=== PATIENT | female | born 1950 | race Asian ===

== ENCOUNTER 2017-02-26 22:25 | Inpatient (IN) | payer MEDICARE, OTHER ==
[~2017-02-26] VITALS: Ht 157.5 cm; Wt 63.8 kg
[~2017-02-26 22:25] MED LIST: FLUT1BLS PO; FURO20 PO; IPRA4AER IH; LISI-660 PO; NICO14T TD; SPIR25 PO
[2017-02-26] MEDS ORDERED: FURO20TA4 PO (23:12)
[2017-02-26] MEDS ORDERED: ASPI81TA33 PO (23:12)
[2017-02-26] MEDS ORDERED: SPIR25TA PO (23:12)
[2017-02-26] MEDS ORDERED: LISI-622 PO (23:12)
[2017-02-26 23:36] LABS: BASOPHILS # (AUTO) 0.01 K/uL (0.00-0.20); BASOPHILS % (AUTO) 0.1 % (0.0-2.0); EOSINOPHILS # (AUTO) 0.29 K/uL (0.00-0.70); EOSINOPHILS % (AUTO) 3.07 % (1.0-6.0); HEMOGLOBIN 14.9 g/dL (12.0-16.0); LYMPHOCYTES # (AUTO) 0.6 K/uL (1.0-4.8); MEAN CORPUSCULAR HGB CONC 32.5 G/dL (31.0-37.0); MEAN CORPUSCULAR VOLUME 92 fL (80-100); MONOCYTES # (AUTO) 0.4 K/uL (0.1-1.0); NEUTROPHILS # (AUTO) 8.2 K/uL (1.8-7.7); PLATELET COUNT (AUTO) 213 K/uL (150-450); RED BLOOD CELL COUNT(AUTO) 4.98 MIL/uL (4.00-5.20); RED CELL DISTRIBUTION WIDTH 14.6 % (11.5-14.5); WHITE BLOOD COUNT (AUTO) 9.4 K/uL (4.5-11.0)
[2017-02-26 23:37] LABS: NEUTROPHILS % (AUTO) 86.9 % (40.0-70.0)
[2017-02-26 23:57] LABS: CALCIUM, TOTAL 8.8 mg/dL (8.8-10.5); CREATININE 1.48 mg/dL (0.60-1.30); POTASSIUM 4.2 mmol/L (3.5-5.1)
[2017-02-27] VITALS (7 sets, daily range): BP systolic 100–119; BP diastolic 61–70
[2017-02-27 00:05] LABS: ALBUMIN 3.6 g/dL (3.4-5.0); BILIRUBIN,TOTAL 0.4 mg/dL (0.1-1.0); TOTAL PROTEIN, SERUM 8.3 g/dL (6.4-8.2)
[2017-02-27] MEDS ORDERED: MORPHINE SULFATE 4 MG/ML SYRINGE IVP ONE (00:45)
[2017-02-27] MEDS ORDERED: HEPARIN SODIUM 25000 UNITS/D5W 250 ML IV PRN ×2 (01:30→08:00)
[2017-02-27 01:53] LABS: APPEARANCE,URINE CLEAR (CLEAR); GLUCOSE, URINE (UA) NEGATIVE (NEGATIVE); KETONES,URINE NEGATIVE (NEGATIVE); LEUKOCYTE ESTERASE ,URINE NEGATIVE (NEGATIVE); OCCULT BLOOD,URINE SMALL (NEGATIVE); PH,URINE 5.5 (5.0-8.0); PROTEIN,URINE POS 1+ (NEGATIVE)
[2017-02-27 01:56] LABS: PROTHROMBIN TIME 10.7 SEC (9.4-11.6)
[2017-02-27] MEDS ORDERED: HEPARIN SODIUM,PORCINE 5,000 UNITS/ML VIAL IVP PRN ×4 (02:00→08:00)
[2017-02-27] MEDS ORDERED: HEPARIN SODIUM,PORCINE 5,000 UNITS/ML VIAL IVP ONE (02:15)
[2017-02-27 02:30] LABS: SQUAMOUS EPITHELIAL CELL,UR Few /LPF (None Seen); WBC,URINE 0-2 /HPF (0-5)
[2017-02-27] MEDS ORDERED: SODIUM CHLORIDE 0.9% 1,000 ML IV ONE (03:00)
[2017-02-27] MEDS ORDERED: PNEUMOCOCCAL VACCINE POLYVALENT 0.5 ML VIAL [PPSV23] IM ONE (05:00)
[2017-02-27] MEDS ORDERED: INFLUENZA VIRUS VACCINE QVS 2017-18 (3YR+)/PF 60 MCG/0.5 ML SYRINGE IM ONE (05:00)
[2017-02-27] MEDS ORDERED: MAGNESIUM HYDROXIDE SUSPENSION 30 ML UDCUP PO PRN (07:45)
[2017-02-27] MEDS ORDERED: ONDANSETRON HCL 4 MG/2 ML VIAL IVP PRN (07:45)
[2017-02-27] MEDS ORDERED: HEPARIN SODIUM,PORCINE 5,000 UNITS/ML VIAL SQ SCH (08:00)
[2017-02-27] MEDS: FUROSEMIDE 20 MG/2 ML VIAL IVP SCH ×2 (08:33→16:36)
[2017-02-27] MEDS: PANTOPRAZOLE SODIUM 40 MG DR TABLET PO SCH (08:33)
[2017-02-27] MEDS: ASPIRIN 81 MG CHEWABLE TABLET PO SCH (08:33)
[2017-02-27] MEDS: DOCUSATE SODIUM 100 MG CAPSULE PO SCH ×2 (08:33→20:13)
[2017-02-27] MEDS: IPRATROPIUM BROMIDE 0.5 MG/2.5 ML NEB SOLUTION NEB SCH ×4 (11:00→23:01)
[2017-02-27] MEDS: ALBUTEROL SULFATE 2.5 MG/0.5 ML NEB SOLUTION NEB SCH ×4 (11:00→23:01)
[2017-02-27] MEDS ORDERED: IOVERSOL 350 MG/ML 100 ML VIAL ONE (13:17)
[2017-02-27] MEDS ORDERED: SODIUM CHLORIDE 0.9% 100 ML ONE (13:17)
[2017-02-27] MEDS ORDERED: FUROSEMIDE 40 MG/4 ML VIAL IVP ONE (16:15)
[2017-02-27] MEDS ORDERED: *CLINICAL-LEVOFLOXACIN IVPB DOSING CLINICAL ONE ×2 (16:15)
[2017-02-27] MEDS ORDERED: SODIUM CHLORIDE 0.9% 250 ML IV ONE (17:52)
[2017-02-27] MEDS: LEVOFLOXACIN 750 MG/D5% WATER 150 ML IV SCH (18:17)
[2017-02-27] MEDS ORDERED: ALBUTEROL SULFATE 2.5 MG/0.5 ML NEB SOLUTION NEB SCH (19:00)
[2017-02-27] MEDS ORDERED: IPRATROPIUM BROMIDE 0.5 MG/2.5 ML NEB SOLUTION NEB SCH (19:00)
[2017-02-27] MEDS: HEPARIN SODIUM,PORCINE 5,000 UNITS/ML VIAL SQ SCH (20:13)
[2017-02-27] MEDS: ACETAMINOPHEN 325 MG TABLET PO PRN (20:13)
[2017-02-28] MEDS: IPRATROPIUM BROMIDE 0.5 MG/2.5 ML NEB SOLUTION NEB SCH ×6 (03:41→23:50)
[2017-02-28] MEDS: ALBUTEROL SULFATE 2.5 MG/0.5 ML NEB SOLUTION NEB SCH ×6 (03:41→23:50)
[2017-02-28 04:16] VITALS: BP 98/57
[2017-02-28 08:13] VITALS: BP 106/67
[2017-02-28] MEDS: HEPARIN SODIUM,PORCINE 5,000 UNITS/ML VIAL SQ SCH ×2 (09:19→20:03)
[2017-02-28] MEDS: ASPIRIN 81 MG CHEWABLE TABLET PO SCH (09:19)
[2017-02-28] MEDS: PANTOPRAZOLE SODIUM 40 MG DR TABLET PO SCH (09:19)
[2017-02-28] MEDS: DOCUSATE SODIUM 100 MG CAPSULE PO SCH ×2 (09:19→21:37)
[2017-02-28] MEDS: ACETAMINOPHEN 325 MG TABLET PO PRN ×2 (09:22→18:17)
[2017-02-28 11:42] VITALS: BP 101/52
[2017-02-28 15:51] LABS: INFLUENZA TYPE B NEGATIVE FOR TYPE B (NEGATIVE)
[2017-02-28 15:56] VITALS: BP 102/74
[2017-02-28] MEDS: CARVEDILOL 3.125 MG TABLET PO SCH ×2 (16:48→22:07)
[2017-02-28] MEDS: OXYGEN THERAPY IH SCH ×2 (16:48→19:50)
[2017-02-28] MEDS: LISINOPRIL 5 MG TABLET PO SCH (16:48)
[2017-02-28] MEDS ORDERED: INFLUENZA VIRUS VACCINE QVS 2017-18 (3YR+)/PF 60 MCG/0.5 ML SYRINGE IM ONE (17:15)
[2017-02-28 19:57] VITALS: BP 104/58
[2017-02-28 23:49] VITALS: BP 108/66
[2017-03-01] MEDS: ALBUTEROL SULFATE 2.5 MG/0.5 ML NEB SOLUTION NEB SCH ×6 (03:23→22:59)
[2017-03-01] MEDS: IPRATROPIUM BROMIDE 0.5 MG/2.5 ML NEB SOLUTION NEB SCH ×6 (03:23→22:59)
[2017-03-01 04:44] VITALS: BP 108/57
[2017-03-01 07:25] LABS: BASOPHILS # (AUTO) 0.02 K/uL (0.00-0.20); BASOPHILS % (AUTO) 0.4 % (0.0-2.0); EOSINOPHILS # (AUTO) 0.13 K/uL (0.00-0.70); EOSINOPHILS % (AUTO) 2.57 % (1.0-6.0); HEMATOCRIT 39.3 % (36-46); HEMOGLOBIN 12.9 g/dL (12.0-16.0); LYMPHOCYTES # (AUTO) 0.7 K/uL (1.0-4.8); LYMPHOCYTES % (AUTO) 14.1 % (22.0-44.0); MEAN CORPUSCULAR HEMOGLOBIN 30.4 pg (26.0-34.0); MEAN CORPUSCULAR VOLUME 92 fL (80-100); MONOCYTES # (AUTO) 0.5 K/uL (0.1-1.0); NEUTROPHILS # (AUTO) 3.7 K/uL (1.8-7.7); PLATELET COUNT (AUTO) 162 K/uL (150-450); RED BLOOD CELL COUNT(AUTO) 4.26 MIL/uL (4.00-5.20); RED CELL DISTRIBUTION WIDTH 14.1 % (11.5-14.5)
[2017-03-01 07:38] VITALS: BP 111/79
[2017-03-01 07:40] LABS: ALBUMIN 2.9 g/dL (3.4-5.0); BILIRUBIN,TOTAL 0.3 mg/dL (0.1-1.0); CALCIUM, TOTAL 8.7 mg/dL (8.8-10.5); CREATININE 1.2 mg/dL (0.60-1.30); POTASSIUM 4.3 mmol/L (3.5-5.1)
[2017-03-01] MEDS: FUROSEMIDE 20 MG/2 ML VIAL IVP SCH (08:33)
[2017-03-01] MEDS: CARVEDILOL 3.125 MG TABLET PO SCH ×2 (08:33→21:00)
[2017-03-01] MEDS: HEPARIN SODIUM,PORCINE 5,000 UNITS/ML VIAL SQ SCH ×2 (08:33→21:00)
[2017-03-01] MEDS: ACETAMINOPHEN 325 MG TABLET PO PRN ×2 (08:33→22:16)
[2017-03-01] MEDS: ASPIRIN 81 MG CHEWABLE TABLET PO SCH (08:34)
[2017-03-01] MEDS: PANTOPRAZOLE SODIUM 40 MG DR TABLET PO SCH (08:34)
[2017-03-01] MEDS: LISINOPRIL 5 MG TABLET PO SCH (08:34)
[2017-03-01] MEDS: DOCUSATE SODIUM 100 MG CAPSULE PO SCH ×2 (08:34→21:00)
[2017-03-01] MEDS: OXYGEN THERAPY IH SCH ×2 (08:35→20:00)
[2017-03-01 11:31] VITALS: BP 98/51
[2017-03-01 15:39] VITALS: BP 103/56
[2017-03-01] MEDS: LEVOFLOXACIN 750 MG/D5% WATER 150 ML IV SCH (16:05)
[2017-03-01 20:04] VITALS: BP 100/52
[2017-03-01 23:49] VITALS: BP 99/57
[2017-03-02] VITALS (7 sets, daily range): BP systolic 102–129; BP diastolic 50–72
[2017-03-02] MEDS: ALBUTEROL SULFATE 2.5 MG/0.5 ML NEB SOLUTION NEB SCH ×6 (03:00→23:03)
[2017-03-02] MEDS: IPRATROPIUM BROMIDE 0.5 MG/2.5 ML NEB SOLUTION NEB SCH ×6 (03:00→23:03)
[2017-03-02] MEDS: FUROSEMIDE 20 MG/2 ML VIAL IVP SCH (08:29)
[2017-03-02] MEDS: HEPARIN SODIUM,PORCINE 5,000 UNITS/ML VIAL SQ SCH ×2 (08:29→20:17)
[2017-03-02] MEDS: LISINOPRIL 5 MG TABLET PO SCH (08:29)
[2017-03-02] MEDS: DOCUSATE SODIUM 100 MG CAPSULE PO SCH ×2 (08:29→20:17)
[2017-03-02] MEDS: PANTOPRAZOLE SODIUM 40 MG DR TABLET PO SCH (08:29)
[2017-03-02] MEDS: ASPIRIN 81 MG CHEWABLE TABLET PO SCH (08:29)
[2017-03-02] MEDS: CARVEDILOL 3.125 MG TABLET PO SCH ×2 (08:29→20:18)
[2017-03-02] MEDS: OXYGEN THERAPY IH SCH ×2 (08:30→20:16)
[2017-03-03] MEDS: IPRATROPIUM BROMIDE 0.5 MG/2.5 ML NEB SOLUTION NEB SCH ×6 (03:28→22:48)
[2017-03-03] MEDS: ALBUTEROL SULFATE 2.5 MG/0.5 ML NEB SOLUTION NEB SCH ×6 (03:28→22:48)
[2017-03-03 04:30] VITALS: BP 105/72
[2017-03-03 07:19] VITALS: BP 124/65
[2017-03-03] MEDS: ASPIRIN 81 MG CHEWABLE TABLET PO SCH (07:56)
[2017-03-03] MEDS: LISINOPRIL 5 MG TABLET PO SCH (07:56)
[2017-03-03] MEDS: OXYGEN THERAPY IH SCH ×2 (07:56→20:17)
[2017-03-03] MEDS: DOCUSATE SODIUM 100 MG CAPSULE PO SCH ×2 (07:56→20:06)
[2017-03-03] MEDS: PANTOPRAZOLE SODIUM 40 MG DR TABLET PO SCH (07:57)
[2017-03-03] MEDS: HEPARIN SODIUM,PORCINE 5,000 UNITS/ML VIAL SQ SCH ×2 (07:57→20:19)
[2017-03-03] MEDS: CARVEDILOL 3.125 MG TABLET PO SCH ×2 (07:57→20:18)
[2017-03-03] MEDS: FUROSEMIDE 20 MG/2 ML VIAL IVP SCH (07:57)
[2017-03-03 11:30] VITALS: BP 104/66
[2017-03-03 14:13] LABS: ORGANISM ID Not indicated.
[2017-03-03 15:22] VITALS: BP 101/64
[2017-03-03] MEDS: LEVOFLOXACIN 750 MG/D5% WATER 150 ML IV SCH (16:18)
[2017-03-03 19:42] VITALS: BP 103/59
[2017-03-03 22:59] VITALS: BP 101/55
[2017-03-04] MEDS: ALBUTEROL SULFATE 2.5 MG/0.5 ML NEB SOLUTION NEB SCH ×3 (03:34→10:48)
[2017-03-04] MEDS: IPRATROPIUM BROMIDE 0.5 MG/2.5 ML NEB SOLUTION NEB SCH ×3 (03:34→10:48)
[2017-03-04 04:48] VITALS: BP 98/59
[2017-03-04 07:05] VITALS: BP 86/57
[2017-03-04] MEDS: OXYGEN THERAPY IH SCH (07:24)
[2017-03-04] MEDS: CARVEDILOL 3.125 MG TABLET PO SCH (08:40)
[2017-03-04] MEDS: HEPARIN SODIUM,PORCINE 5,000 UNITS/ML VIAL SQ SCH (08:40)
[2017-03-04] MEDS: FUROSEMIDE 20 MG/2 ML VIAL IVP SCH (08:40)
[2017-03-04] MEDS: DOCUSATE SODIUM 100 MG CAPSULE PO SCH (08:40)
[2017-03-04] MEDS: LISINOPRIL 5 MG TABLET PO SCH (08:41)
[2017-03-04] MEDS: PANTOPRAZOLE SODIUM 40 MG DR TABLET PO SCH (08:41)
[2017-03-04] MEDS: ASPIRIN 81 MG CHEWABLE TABLET PO SCH (08:41)
[2017-03-04 11:20] VITALS: BP 118/57
[2017-03-04] MEDS ORDERED: CARV6 PO (12:22)
[2017-03-04] MEDS ORDERED: POTA8CAP10 PO (12:27)
[2017-03-07 16:22] LABS: COCCIDIOIDES BY CF(UCDAVIS) Negative; COCCIDIOIDES IMMUNODIF-UCDAVIS Negative; COCCIDIOIDES INTERP.(UCDAVIS) Comment:
== END 2017-03-04 14:55 | disposition home or self-care (01) | DRG 291 ==
LOC: EMS 22:27 → 5S 02-27 02:36 → 5N 02-27 18:15 → 5S 03-03 02:00
PROVIDERS: ADMIT Internal Medicine; ATTEND Internal Medicine
PROC: 5A09357 Assistance with Respiratory Ventilation, Less than 24 Consecutive Hours, Continuous Positive Airway Pressure (ICD-10-PCS; principal; 2017-02-27)
DX: I11.0 Hypertensive heart disease with heart failure (principal); J96.01 Acute respiratory failure with hypoxia; N17.9 Acute kidney failure, unspecified; J18.9 Pneumonia, unspecified organism; J44.0 Chronic obstructive pulmonary disease with (acute) lower respiratory infection; I50.23 Acute on chronic systolic (congestive) heart failure; I42.9 Cardiomyopathy, unspecified; I50.9 Heart failure, unspecified; J44.9 Chronic obstructive pulmonary disease, unspecified; F41.9 Anxiety disorder, unspecified; F32.9 Major depressive disorder, single episode, unspecified; I34.0 Nonrheumatic mitral (valve) insufficiency; F17.200 Nicotine dependence, unspecified, uncomplicated; F15.10 Other stimulant abuse, uncomplicated; Z91.19 Patient's noncompliance with other medical treatment and regimen; Z78.9 Other specified health status; Z79.82 Long term (current) use of aspirin; Z79.899 Other long term (current) drug therapy; Z87.01 Personal history of pneumonia (recurrent); Z59.0 Homelessness
CPT/HCPCS: 71275; 83036; 84145; 85379; 86480; 87015; 87449; 87804; 87899; 93005; 93306; 94640; 94660; 96365; 96375; 99285; J1644; J1940; J1956; J2270; J7030; J7050

== ENCOUNTER 2019-03-26 11:27 | Inpatient (IN) | payer MEDICARE, OTHER ==
[~2019-03-26] VITALS: Ht 160 cm; Wt 73.0 kg
[~2019-03-26 11:27] MED LIST changes: +ASPI81TA87 PO; +CARV6 PO; -FURO20 PO; +FURO20TA4 PO; -NICO14T TD; +POTA8CAP20 PO; -SPIR25 PO
[2019-03-26] MEDS ORDERED: MethylPREDNISolone SOD SUCC 125 MG/2 ML VIAL IVP ONE (12:15)
[2019-03-26] MEDS ORDERED: AZITHROMYCIN 500 MG/NS 250 ML IV ONE (12:15)
[2019-03-26] MEDS ORDERED: ALBUTEROL SULFATE 2.5 MG/0.5 ML NEB SOLUTION NEB ONE (12:15)
[2019-03-26] MEDS ORDERED: IPRATROPIUM BROMIDE 0.5 MG/2.5 ML NEB SOLUTION NEB ONE (12:15)
[2019-03-26 12:29] LABS: BASOPHILS % (AUTO) 0.3 % (0.0-2.0); EOSINOPHILS % (AUTO) 0.7 % (1.0-6.0); HEMOGLOBIN 18.3 g/dL (12.0-16.0); LYMPHOCYTES # (AUTO) 1.5 K/uL (1.0-4.8); LYMPHOCYTES % (AUTO) 18.7 % (22.0-44.0); MEAN CORPUSCULAR HEMOGLOBIN 31.7 pg (26.0-34.0); MEAN CORPUSCULAR HGB CONC 32.5 G/dL (31.0-37.0); MEAN CORPUSCULAR VOLUME 98 fL (80-100); MONOCYTES # (AUTO) 0.7 K/uL (0.1-1.0); MONOCYTES % (AUTO) 8.4 % (2.0-9.0); NEUTROPHILS # (AUTO) 5.9 K/uL (1.8-7.7); NEUTROPHILS % (AUTO) 71.9 % (40.0-70.0); PLATELET COUNT (AUTO) 157 K/uL (150-450); RED BLOOD CELL COUNT(AUTO) 5.77 MIL/uL (4.00-5.20)
[2019-03-26 12:34] LABS: HEMATOCRIT 56.3 % (36-46)
[2019-03-26 13:20] LABS: INFLUENZA TYPE A NEGATIVE FOR TYPE A (NEGATIVE); INFLUENZA TYPE B NEGATIVE FOR TYPE B (NEGATIVE)
[2019-03-26 13:51] LABS: APPEARANCE,URINE CLOUDY (CLEAR); GLUCOSE, URINE (UA) NEGATIVE (NEGATIVE); KETONES,URINE NEGATIVE (NEGATIVE); NITRATE,URINE NEGATIVE (NEGATIVE); PROTEIN,URINE SEE CONFIRM (NEGATIVE)
[2019-03-26 13:56] LABS: BILIRUBIN,URINE PRELIM. POSITIVE (NEGATIVE)
[2019-03-26 13:57] LABS: BACTERIA,URINE Moderate /HPF (None Seen); LEUKOCYTE ESTERASE ,URINE SMALL (NEGATIVE); OCCULT BLOOD,URINE SMALL (NEGATIVE); SULFOSALICYLIC ACID,URINE 3+ (Negative)
[2019-03-26 13:58] LABS: SQUAMOUS EPITHELIAL CELL,UR Many /LPF (None Seen)
[2019-03-26] MEDS ORDERED: ONDANSETRON HCL 4 MG/2 ML VIAL IVP ONE (14:00)
[2019-03-26 14:10] LABS: AMPHET/METH SCREEN,URINE POSITIVE (NEGATIVE); BARBITURATE SCREEN, URINE NEGATIVE (NEGATIVE); BENZODIAZEPINES SCREEN,URINE NEGATIVE (NEGATIVE); CANNABINOID SCREEN,URINE NEGATIVE (NEGATIVE); COCAINE SCREEN,URINE NEGATIVE (NEGATIVE); METHADONE SCREEN, URINE NEGATIVE (NEGATIVE); OPIATE SCREEN,URINE NEGATIVE (NEGATIVE); PHENCYCLIDINE SCREEN,URINE NEGATIVE (NEGATIVE)
[2019-03-26 14:16] LABS: ANION GAP 10 mmol/L (8-16); CARBON DIOXIDE 24 mmol/L (22-29); CHLORIDE 104 mmol/L (98-107); CREATININE 1.67 mg/dL (0.60-1.30); GLOMERULAR FILTR. RATE CALC 30 mL/min (>60); GLUCOSE,RANDOM 168 mg/dL (70-110); POTASSIUM 4.6 mmol/L (3.5-5.1); SODIUM SERUM 138 mmol/L (136-145); UREA NITROGEN, BLOOD 48 mg/dL (7-18)
[2019-03-26 14:21] LABS: ALANINE AMINOTRANSFERASE 800 U/L (12-78); ALBUMIN 2.5 g/dL (3.4-5.0); ALKALINE PHOSPHATASE 94 U/L (46-116); ASPARTATE AMINOTRANSFERASE 565 U/L (15-37); BILIRUBIN,TOTAL 2.3 mg/dL (0.1-1.0); TOTAL PROTEIN, SERUM 6.3 g/dL (6.4-8.2)
[2019-03-26] MEDS ORDERED: ACETAMINOPHEN 325 MG TABLET PO PRN ×2 (14:30→19:45)
[2019-03-26] MEDS ORDERED: HYDROmorphone 2 MG/ML SYRINGE IVP ONE (14:30)
[2019-03-26] MEDS ORDERED: ONDANSETRON HCL 4 MG/2 ML VIAL IVP PRN ×2 (14:30→19:45)
[2019-03-26] MEDS ORDERED: 0.9% SODIUM CHLORIDE 10 ML SYRINGE IVP PRN (14:30)
[2019-03-26 14:32] LABS: LIPASE 129 U/L (73-393)
[2019-03-26 14:35] LABS: LACTIC ACID 3.2 mmol/L (0.4-2.0)
[2019-03-26] MEDS: ALBUTEROL SULFATE 2.5 MG/0.5 ML NEB SOLUTION NEB SCH ×3 (14:46→20:00)
[2019-03-26] MEDS: IPRATROPIUM BROMIDE 0.5 MG/2.5 ML NEB SOLUTION NEB SCH ×3 (14:46→20:00)
[2019-03-26] MEDS ORDERED: ETOMIDATE 2 MG/ML 10 ML VIAL IVP ONE (15:35)
[2019-03-26] MEDS ORDERED: ROCURONIUM BROMIDE 10 MG/ML 5 ML VIAL IVP ONE (15:35)
[2019-03-26] MEDS ORDERED: PROPOFOL 1000 MG/ISO-OSM 100 ML IV ONE (15:57)
[2019-03-26 16:09] LABS: ABG A-A DIFF O2 530.2 mmHg (10-20.0); ABG BASE EXCESS -21.5 mmol/L (-2.0-3.0); ABG CARBOXYHEMOGLOBIN 0.5 % (0.0-1.5); ABG HCO3 10.2 mmol/L (22.0-26.0); ABG METHEMOGLOBIN 0.5 % (0.0-1.5); ABG OXYGEN CONTENT 23.5 mL/dL (15.0-23.0); ABG OXYGEN SATURATION 97.8 % (95.0-98.0); ABG OXYHEMOGLOBIN 96.8 % (94.0-100.0); ABG PCO2 36 mmHg (35-45); ABG PH 7.033 (7.35-7.450); ABG TOTAL HEMOGLOBIN 17.1 G/dL (12.0-18.0); PO2, ARTERIAL BG 147.1 mmHg (75.0-83.0); SOURCE, BLOOD GAS ARTERIAL; TEMPERATURE, FAHRENHEIT, BG 98.6 FAHREN (96.0-98.6)
[2019-03-26 16:10] LABS: O2 DEVICE,BLOOD GAS VENTILATOR (ROOM AIR); PEEP,BG 5 cm H2O; SITE, BLOOD GAS RT FEMORAL; VT, ABG 450 ml
[2019-03-26] MEDS ORDERED: PHENYLEPHRINE 200 MG/D5%-WATER 250 ML IV PRN (16:15)
[2019-03-26] MEDS ORDERED: DOPamine HCL 400 MG/D5%-WATER 250 ML IV PRN ×2 (16:19→22:45)
[2019-03-26] MEDS ORDERED: NOREPINEPHRINE 4 MG/D5%-WATER 250 ML IV PRN (16:19)
[2019-03-26] MEDS ORDERED: SODIUM BICARBONATE [ADULT] 8.4% 50 MEQ/50 ML SYRINGE IVP ONE ×2 (16:30→18:25)
[2019-03-26] MEDS ORDERED: SODIUM BICARBONATE [ADULT] 8.4% 50 MEQ/50 ML SYRINGE ONE (16:30)
[2019-03-26] MEDS ORDERED: SODIUM CHLORIDE 0.9% 1,000 ML IV ONE (16:30)
[2019-03-26 16:58] LABS: ABG A-A DIFF O2 439.8 mmHg (10-20.0); ABG BASE EXCESS -10.6 mmol/L (-2.0-3.0); ABG HCO3 16.7 mmol/L (22.0-26.0); ABG METHEMOGLOBIN 0.1 % (0.0-1.5); ABG OXYGEN CONTENT 22.3 mL/dL (15.0-23.0); ABG OXYGEN SATURATION 99.3 % (95.0-98.0); ABG OXYHEMOGLOBIN 98.2 % (94.0-100.0); ABG PCO2 41 mmHg (35-45); ABG PH 7.234 (7.35-7.450); ABG TOTAL HEMOGLOBIN 15.8 G/dL (12.0-18.0); PO2, ARTERIAL BG 233.4 mmHg (75.0-83.0); SOURCE, BLOOD GAS ARTERIAL; TEMPERATURE, FAHRENHEIT, BG 97.9 FAHREN (96.0-98.6)
[2019-03-26 17:00] LABS: O2 DEVICE,BLOOD GAS VENTILATOR (ROOM AIR); PEEP,BG 5 cm H2O; SITE, BLOOD GAS RT RADIAL; VT, ABG 450 ml
[2019-03-26 17:10] LABS: GLUCOSE,POINT OF CARE 109 MG/DL (70-110)
[2019-03-26] MEDS ORDERED: SODIUM CHLORIDE 0.9% 250 ML IV STA (17:45)
[2019-03-26 17:51] LABS: PROTHROMBIN TIME 20.1 SEC (9.4-11.6)
[2019-03-26] MEDS ORDERED: 0.9% SODIUM CHLORIDE 1,000 ML BAG IV ONE (18:25)
[2019-03-26] MEDS ORDERED: EPINEPHrine 1:10,000 [1 MG/10 ML] SYRINGE IVP ONE (18:25)
[2019-03-26] MEDS ORDERED: 0.9% SODIUM CHLORIDE 10 ML SYRINGE IVP ONE (18:25)
[2019-03-26] MEDS ORDERED: DOPamine HCL/D5W 400 MG/250 ML IV BAG IV ONE (18:25)
[2019-03-26] MEDS ORDERED: GABA-531 PO (19:28)
[2019-03-26] MEDS ORDERED: METO25 PO (19:28)
[2019-03-26] MEDS ORDERED: *CLINICAL-CEFEPIME DOSING CLINICAL ONE (19:30)
[2019-03-26] MEDS ORDERED: ALBUTEROL SULFATE 2.5 MG/0.5 ML NEB SOLUTION NEB PRN (19:45)
[2019-03-26] MEDS ORDERED: HYDROCODONE/ACETAMINOPHEN 5-325 MG TABLET PO PRN (19:45)
[2019-03-26] MEDS ORDERED: ZOLPIDEM TARTRATE 5 MG TABLET PO PRN (19:45)
[2019-03-26] MEDS ORDERED: IPRATROPIUM BROMIDE 0.5 MG/2.5 ML NEB SOLUTION NEB PRN (19:45)
[2019-03-26] MEDS ORDERED: MORPHINE SULFATE 2 MG/ML SYRINGE IVP PRN (19:45)
[2019-03-26] MEDS ORDERED: BISACODYL 10 MG RECTAL RECTAL SUPPOSITORY PR PRN (19:45)
[2019-03-26] MEDS ORDERED: MAGNESIUM HYDROXIDE SUSPENSION 30 ML UDCUP PO PRN (19:45)
[2019-03-26 20:14] LABS: CALCIUM, TOTAL 6.8 mg/dL (8.8-10.5); CREATININE 1.9 mg/dL (0.60-1.30); POTASSIUM 4.4 mmol/L (3.5-5.1)
[2019-03-26] MEDS ORDERED: VANCOMYCIN HCL 1.25 GM in DEXTROSE 5%-WATER 250 ML IV ONE (21:00)
[2019-03-26] MEDS ORDERED: FUROSEMIDE 20 MG/2 ML VIAL IVP SCH (21:00)
[2019-03-26] MEDS ORDERED: CEFEPIME HCL 1 GM in DEXTROSE 5%-WATER 50 ML IV ONE (21:00)
[2019-03-26 21:35] LABS: LACTIC ACID 5.3 mmol/L (0.4-2.0)
[2019-03-26] MEDS: BENZONATATE 100 MG CAPSULE PO SCH (23:00)
[2019-03-26] MEDS: CARVEDILOL 6.25 MG TABLET PO SCH (23:00)
[2019-03-26] MEDS: GuaiFENesin SR 600 MG ER TABLET PO SCH (23:00)
[2019-03-26] MEDS: DOCUSATE SODIUM 100 MG CAPSULE PO SCH (23:00)
[2019-03-26 23:04] LABS: BASOPHILS % (AUTO) 0.2 % (0.0-2.0); EOSINOPHILS % (AUTO) 0.1 % (1.0-6.0); HEMATOCRIT 54.7 % (36-46); HEMOGLOBIN 17.5 g/dL (12.0-16.0); LYMPHOCYTES # (AUTO) 0.7 K/uL (1.0-4.8); LYMPHOCYTES % (AUTO) 5.5 % (22.0-44.0); MEAN CORPUSCULAR HEMOGLOBIN 31.5 pg (26.0-34.0); MEAN CORPUSCULAR HGB CONC 31.9 G/dL (31.0-37.0); MEAN CORPUSCULAR VOLUME 99 fL (80-100); MONOCYTES # (AUTO) 1.2 K/uL (0.1-1.0); MONOCYTES % (AUTO) 9.3 % (2.0-9.0); NEUTROPHILS # (AUTO) 11.4 K/uL (1.8-7.7); NEUTROPHILS % (AUTO) 84.9 % (40.0-70.0); RED BLOOD CELL COUNT(AUTO) 5.55 MIL/uL (4.00-5.20); RED CELL DISTRIBUTION WIDTH 16.1 % (11.5-14.5)
[2019-03-26] MEDS ORDERED: SODIUM CHLORIDE 0.9% 250 ML IV ONE (23:16)
[2019-03-26 23:28] LABS: ABG A-A DIFF O2 161.4 mmHg (10-20.0); ABG BASE EXCESS -11.4 mmol/L (-2.0-3.0); ABG CARBOXYHEMOGLOBIN 0.4 % (0.0-1.5); ABG HCO3 16.8 mmol/L (22.0-26.0); ABG METHEMOGLOBIN 0.3 % (0.0-1.5); ABG OXYGEN CONTENT 25.3 mL/dL (15.0-23.0); ABG OXYGEN SATURATION 97.2 % (95.0-98.0); ABG OXYHEMOGLOBIN 96.5 % (94.0-100.0); ABG PCO2 30 mmHg (35-45); ABG TOTAL HEMOGLOBIN 18.6 G/dL (12.0-18.0); PO2, ARTERIAL BG 91.1 mmHg (75.0-83.0); SITE, BLOOD GAS RT FEMORAL; SOURCE, BLOOD GAS ARTERIAL; TEMPERATURE, FAHRENHEIT, BG 94.5 FAHREN (96.0-98.6)
[2019-03-26 23:29] LABS: O2 DEVICE,BLOOD GAS VENTILATOR (ROOM AIR); PEEP,BG 5 cm H2O; VT, ABG 450 ml
[2019-03-26 23:31] LABS: PLATELET COUNT (AUTO) 141 K/uL (150-450)
[2019-03-26 23:32] LABS: PLATELET MORPHOLOGY COMMENT LARGE PLTS PRESENT
[2019-03-27] VITALS: BP 130/73
[2019-03-27] MEDS: MethylPREDNISolone SOD SUCC 125 MG/2 ML VIAL IVP SCH ×4 (00:31→17:58)
[2019-03-27] MEDS: PHENYLEPHRINE 200 MG/D5%-WATER 250 ML IV PRN ×2 (01:18→15:40)
[2019-03-27] MEDS: NOREPINEPHRINE 4 MG/D5%-WATER 250 ML IV PRN ×6 (01:21→22:25)
[2019-03-27] MEDS: IPRATROPIUM BROMIDE 0.5 MG/2.5 ML NEB SOLUTION NEB SCH ×4 (01:40→19:18)
[2019-03-27] MEDS: ALBUTEROL SULFATE 2.5 MG/0.5 ML NEB SOLUTION NEB SCH ×4 (01:41→19:18)
[2019-03-27 01:48] LABS: ALBUMIN 2.5 g/dL (3.4-5.0); BILIRUBIN,TOTAL 3.6 mg/dL (0.1-1.0); CALCIUM, TOTAL 7.4 mg/dL (8.8-10.5); CREATININE 2.25 mg/dL (0.60-1.30); MAGNESIUM 1.9 mg/dL (1.80-2.40); PHOSPHORUS 7.2 mg/dL (2.5-4.9); POTASSIUM 5.6 mmol/L (3.5-5.1)
[2019-03-27 04:00] VITALS: BP 61/300
[2019-03-27] MEDS: PROPOFOL 1000 MG/ISO-OSM 100 ML IV PRN ×2 (05:15→14:18)
[2019-03-27 06:03] LABS: GLUCOSE,POINT OF CARE 165 MG/DL (70-110)
[2019-03-27] MEDS ORDERED: VANCOMYCIN HCL 750 MG in DEXTROSE 5%-WATER 250 ML IV SCH (07:00)
[2019-03-27 07:03] LABS: GLUCOSE,POINT OF CARE 197 MG/DL (70-110)
[2019-03-27] MEDS ORDERED: VASOPRESSIN 40 UNITS in DEXTROSE 5%-WATER 98 ML IV PRN ×2 (07:33→07:45)
[2019-03-27 07:54] LABS: ABG BASE EXCESS -12.2 mmol/L (-2.0-3.0); ABG CARBOXYHEMOGLOBIN 1.1 % (0.0-1.5); ABG HCO3 15.2 mmol/L (22.0-26.0); ABG METHEMOGLOBIN 0.1 % (0.0-1.5); ABG OXYGEN CONTENT 22.5 mL/dL (15.0-23.0); ABG OXYGEN SATURATION 99.4 % (95.0-98.0); ABG OXYHEMOGLOBIN 98.2 % (94.0-100.0); ABG PCO2 48 mmHg (35-45); ABG TOTAL HEMOGLOBIN 15.9 G/dL (12.0-18.0); PO2, ARTERIAL BG 240.2 mmHg (75.0-83.0); SOURCE, BLOOD GAS ARTERIAL; TEMPERATURE, FAHRENHEIT, BG 98.6 FAHREN (96.0-98.6)
[2019-03-27 07:56] LABS: ABG PH 7.156 (7.35-7.450); SITE, BLOOD GAS RT BRACHIAL
[2019-03-27 07:57] LABS: O2 DEVICE,BLOOD GAS VENTILATOR (ROOM AIR); PEEP,BG 5 cm H2O; VT, ABG 450 ml
[2019-03-27 08:00] VITALS: BP 38/25
[2019-03-27] MEDS: HEPARIN SODIUM,PORCINE 5,000 UNITS/ML VIAL SQ SCH ×3 (08:00→16:00)
[2019-03-27 08:06] LABS: HEMOGLOBIN 15.4 g/dL (12.0-16.0); MEAN CORPUSCULAR HEMOGLOBIN 31.8 pg (26.0-34.0); MEAN CORPUSCULAR HGB CONC 32.2 G/dL (31.0-37.0); MEAN CORPUSCULAR VOLUME 99 fL (80-100); PLATELET COUNT (AUTO) 85 K/uL (150-450); RED BLOOD CELL COUNT(AUTO) 4.85 MIL/uL (4.00-5.20); RED CELL DISTRIBUTION WIDTH 15.7 % (11.5-14.5)
[2019-03-27] MEDS ORDERED: EPINEPHrine 2 MG in DEXTROSE 5%-WATER 248 ML IV PRN (08:15)
[2019-03-27] MEDS ORDERED: SODIUM BICARBONATE [ADULT] 8.4% 50 MEQ/50 ML SYRINGE IVP ONE ×2 (08:15→08:16)
[2019-03-27 08:21] LABS: BILIRUBIN,TOTAL 4.5 mg/dL (0.1-1.0); CALCIUM, TOTAL 6.4 mg/dL (8.8-10.5); CREATININE 2.77 mg/dL (0.60-1.30); MAGNESIUM 1.8 mg/dL (1.80-2.40); PHOSPHORUS 7.9 mg/dL (2.5-4.9); POTASSIUM 4.2 mmol/L (3.5-5.1); TOTAL PROTEIN, SERUM 5.1 g/dL (6.4-8.2)
[2019-03-27] MEDS: DOCUSATE SODIUM 100 MG CAPSULE PO SCH ×2 (09:00→21:00)
[2019-03-27] MEDS: ASPIRIN 81 MG EC TABLET PO SCH (09:00)
[2019-03-27] MEDS: FLUTICASONE/VILANTEROL 200-25 MCG/INH INHALER [14] IH SCH (09:00)
[2019-03-27] MEDS ORDERED: PANTOPRAZOLE SODIUM 40 MG DR TABLET PO SCH (09:00)
[2019-03-27] MEDS ORDERED: PHYTONADIONE 10 MG/1 ML AMP IM ONE (09:15)
[2019-03-27] MEDS ORDERED: VANCOMYCIN HCL 1 GM/D5% WATER 200 ML IV PRN (09:30)
[2019-03-27] MEDS ORDERED: SODIUM CHLORIDE 0.9% 250 ML IV ONE ×2 (09:37→23:09)
[2019-03-27] MEDS: GuaiFENesin SR 600 MG ER TABLET PO SCH ×2 (09:39→21:00)
[2019-03-27] MEDS: BENZONATATE 100 MG CAPSULE PO SCH ×3 (09:40→21:00)
[2019-03-27] MEDS: CARVEDILOL 6.25 MG TABLET PO SCH ×2 (09:40→21:00)
[2019-03-27 09:42] LABS: BAND NEUTROPHILS % (MANUAL) 10 % (0-5); LYMPHOCYTES % (MANUAL) 15 % (22-44); MONOCYTES % (MANUAL) 8 % (2-9); REACTIVE LYMPHOCYTES 3 % (0-0); SEGMENTED NEUTROPHILS % 64 % (40-70)
[2019-03-27] MEDS ORDERED: HEPARIN SODIUM,PORCINE 100 UNITS/ML 5 ML VIAL IVP ONE ×2 (11:00)
[2019-03-27] MEDS ORDERED: HEPARIN SODIUM,PORCINE 1,000 UNITS/ML VIAL ONE (11:02)
[2019-03-27] MEDS: PANTOPRAZOLE SODIUM 80 MG in SODIUM CHLORIDE 0.9% 100 ML IV SCH ×2 (11:03→20:06)
[2019-03-27] MEDS ORDERED: HEPARIN SODIUM,PORCINE 1,000 UNITS/ML VIAL IVP ONE ×2 (11:15)
[2019-03-27 12:00] VITALS: BP 130/39
[2019-03-27] MEDS: OCTREOTIDE ACETATE 500 MCG in DEXTROSE 5%-WATER 97.5 ML IV SCH ×2 (12:18→17:56)
[2019-03-27 13:30] LABS: ABG A-A DIFF O2 471.7 mmHg (10-20.0); ABG BASE EXCESS -5.1 mmol/L (-2.0-3.0); ABG CARBOXYHEMOGLOBIN 1.7 % (0.0-1.5); ABG HCO3 20.7 mmol/L (22.0-26.0); ABG METHEMOGLOBIN 0.3 % (0.0-1.5); ABG OXYGEN CONTENT 19.1 mL/dL (15.0-23.0); ABG OXYGEN SATURATION 90.1 % (95.0-98.0); ABG OXYHEMOGLOBIN 88.3 % (94.0-100.0); ABG PCO2 36 mmHg (35-45); ABG PH 7.365 (7.35-7.450); ABG TOTAL HEMOGLOBIN 15.4 G/dL (12.0-18.0); PO2, ARTERIAL BG 60.7 mmHg (75.0-83.0); SITE, BLOOD GAS ARTERIAL LINE; SOURCE, BLOOD GAS ARTERIAL; TEMPERATURE, FAHRENHEIT, BG 98.6 FAHREN (96.0-98.6)
[2019-03-27 13:31] LABS: O2 DEVICE,BLOOD GAS VENTILATOR (ROOM AIR); PEEP,BG 5 cm H2O; VT, ABG 450 ml
[2019-03-27 13:32] LABS: ALBUMIN 1.8 g/dL (3.4-5.0); BILIRUBIN,TOTAL 7.5 mg/dL (0.1-1.0); CALCIUM, TOTAL 6.3 mg/dL (8.8-10.5); CREATININE 2.69 mg/dL (0.60-1.30); MAGNESIUM 1.6 mg/dL (1.80-2.40); PHOSPHORUS 5.5 mg/dL (2.5-4.9); POTASSIUM 3.7 mmol/L (3.5-5.1); TOTAL PROTEIN, SERUM 4.7 g/dL (6.4-8.2)
[2019-03-27 13:51] LABS: GLUCOSE,POINT OF CARE 123 MG/DL (70-110)
[2019-03-27] MEDS ORDERED: CALCIUM GLUCONATE 2,000 MG in DEXTROSE 5%-WATER 50 ML IV ONE (14:00)
[2019-03-27] MEDS ORDERED: MAGNESIUM SULFATE 1 GM in DEXTROSE 5%-WATER 50 ML IV ONE (14:00)
[2019-03-27] MEDS: CEFEPIME HCL 2 GM in DEXTROSE 5%-WATER 50 ML IV SCH (14:04)
[2019-03-27 17:40] LABS: HEMATOCRIT 40.3 % (36-46); HEMOGLOBIN 12.9 g/dL (12.0-16.0)
[2019-03-27 18:00] VITALS: BP 135/47
[2019-03-27 18:12] LABS: CALCIUM, TOTAL 6.9 mg/dL (8.8-10.5); CREATININE 2.78 mg/dL (0.60-1.30); MAGNESIUM 1.8 mg/dL (1.80-2.40); PHOSPHORUS 5.5 mg/dL (2.5-4.9); POTASSIUM 4.1 mmol/L (3.5-5.1)
[2019-03-27] MEDS ORDERED: CALCIUM CHLORIDE IV SCH (19:15)
[2019-03-27] MEDS ORDERED: CALCIUM CHLORIDE IV ONE (19:15)
[2019-03-27] MEDS ORDERED: SODIUM CHLORIDE 0.9% IV ONE (19:15)
[2019-03-27] MEDS ORDERED: SODIUM CHLORIDE 0.9% IV SCH (19:15)
[2019-03-27 20:00] VITALS: BP 104/44
[2019-03-27] MEDS: MetroNIDAZOLE 500 MG/NACL 100 ML IV SCH (20:05)
[2019-03-27 21:58] LABS: ALBUMIN 2.1 g/dL (3.4-5.0); BILIRUBIN,TOTAL 12.4 mg/dL (0.1-1.0); CALCIUM, TOTAL 7.3 mg/dL (8.8-10.5); CREATININE 2.95 mg/dL (0.60-1.30); MAGNESIUM 1.9 mg/dL (1.80-2.40); PHOSPHORUS 5.1 mg/dL (2.5-4.9); POTASSIUM 3.9 mmol/L (3.5-5.1); TOTAL PROTEIN, SERUM 4.8 g/dL (6.4-8.2)
[2019-03-27] MEDS ORDERED: SODIUM CHLORIDE 0.9% 500 ML IV ONE (23:09)
[2019-03-28] VITALS (11 sets, daily range): BP systolic 84–178; BP diastolic 38–71
[2019-03-28] MEDS: HEPARIN SODIUM,PORCINE 5,000 UNITS/ML VIAL SQ SCH
[2019-03-28] MEDS: MethylPREDNISolone SOD SUCC 125 MG/2 ML VIAL IVP SCH ×4 (00:55→18:04)
[2019-03-28] MEDS: PROPOFOL 1000 MG/ISO-OSM 100 ML IV PRN ×3 (00:56→18:55)
[2019-03-28 01:26] LABS: GLUCOSE,POINT OF CARE 134 MG/DL (70-110)
[2019-03-28] MEDS: NOREPINEPHRINE 4 MG/D5%-WATER 250 ML IV PRN (01:38)
[2019-03-28] MEDS: ALBUTEROL SULFATE 2.5 MG/0.5 ML NEB SOLUTION NEB SCH ×4 (02:36→19:21)
[2019-03-28] MEDS: IPRATROPIUM BROMIDE 0.5 MG/2.5 ML NEB SOLUTION NEB SCH ×4 (02:37→19:21)
[2019-03-28] MEDS ORDERED: CALCIUM CHLORIDE 100 MG/ML 10 ML VIAL IVP SCH (03:00)
[2019-03-28 03:12] LABS: BILIRUBIN,TOTAL 18.4 mg/dL (0.1-1.0); CALCIUM, TOTAL 8.2 mg/dL (8.8-10.5); CREATININE 3.24 mg/dL (0.60-1.30); MAGNESIUM 1.7 mg/dL (1.80-2.40); PHOSPHORUS 6.1 mg/dL (2.5-4.9); POTASSIUM 4.1 mmol/L (3.5-5.1); TOTAL PROTEIN, SERUM 4.7 g/dL (6.4-8.2)
[2019-03-28] MEDS: MetroNIDAZOLE 500 MG/NACL 100 ML IV SCH ×3 (03:17→20:56)
[2019-03-28] MEDS: CALCIUM CHLORIDE IV SCH ×3 (03:30→21:15)
[2019-03-28] MEDS: WATER IV SCH ×3 (03:30→21:15)
[2019-03-28] MEDS: DEXTROSE 5% IV SCH ×3 (03:30→21:15)
[2019-03-28] MEDS: OCTREOTIDE ACETATE 500 MCG in DEXTROSE 5%-WATER 97.5 ML IV SCH ×2 (05:45→15:17)
[2019-03-28] MEDS: NOREPINEPHRINE BITARTRATE 16 MG in DEXTROSE 5%-WATER 234 ML IV PRN ×2 (05:50→20:55)
[2019-03-28] MEDS: PANTOPRAZOLE SODIUM 80 MG in SODIUM CHLORIDE 0.9% 100 ML IV SCH ×3 (06:03→15:18)
[2019-03-28 07:40] LABS: ALBUMIN 1.8 g/dL (3.4-5.0); BILIRUBIN,TOTAL 20.1 mg/dL (0.1-1.0); CALCIUM, TOTAL 8.5 mg/dL (8.8-10.5); CREATININE 3.46 mg/dL (0.60-1.30); POTASSIUM 4.6 mmol/L (3.5-5.1); TOTAL PROTEIN, SERUM 4.4 g/dL (6.4-8.2)
[2019-03-28 08:00] LABS: HEMATOCRIT 40.6 % (36-46); HEMOGLOBIN 13.3 g/dL (12.0-16.0); MEAN CORPUSCULAR HEMOGLOBIN 32.6 pg (26.0-34.0); MEAN CORPUSCULAR HGB CONC 32.7 G/dL (31.0-37.0); MEAN CORPUSCULAR VOLUME 100 fL (80-100); PLATELET COUNT (AUTO) 57 K/uL (150-450); RED BLOOD CELL COUNT(AUTO) 4.08 MIL/uL (4.00-5.20); RED CELL DISTRIBUTION WIDTH 15.7 % (11.5-14.5)
[2019-03-28 08:41] LABS: BAND NEUTROPHILS % (MANUAL) 20 % (0-5); CORRECTED WHITE BLOOD COUNT 6.4 K/uL (4.5-11.0); LYMPHOCYTES % (MANUAL) 2 % (22-44); MONOCYTES % (MANUAL) 12 % (2-9); MYELOCYTES % 2 % (0-0); REACTIVE LYMPHOCYTES 1 % (0-0); SEGMENTED NEUTROPHILS % 63 % (40-70)
[2019-03-28 08:54] LABS: ABG A-A DIFF O2 194.5 mmHg (10-20.0); ABG BASE EXCESS -5.1 mmol/L (-2.0-3.0); ABG CARBOXYHEMOGLOBIN 3.5 % (0.0-1.5); ABG HCO3 20.9 mmol/L (22.0-26.0); ABG METHEMOGLOBIN 0.3 % (0.0-1.5); ABG OXYGEN CONTENT 17.8 mL/dL (15.0-23.0); ABG OXYGEN SATURATION 96.5 % (95.0-98.0); ABG OXYHEMOGLOBIN 92.8 % (94.0-100.0); ABG PCO2 34 mmHg (35-45); ABG PH 7.385 (7.35-7.450); ABG TOTAL HEMOGLOBIN 13.6 G/dL (12.0-18.0); O2 DEVICE,BLOOD GAS VENTILATOR (ROOM AIR); PO2, ARTERIAL BG 87.6 mmHg (75.0-83.0); SITE, BLOOD GAS ARTERIAL LINE; SOURCE, BLOOD GAS ARTERIAL; TEMPERATURE, FAHRENHEIT, BG 98.6 FAHREN (96.0-98.6)
[2019-03-28 08:55] LABS: PEEP,BG 5 cm H2O; VT, ABG 450 ml
[2019-03-28] MEDS: GuaiFENesin SR 600 MG ER TABLET PO SCH ×2 (09:00→20:56)
[2019-03-28] MEDS: FLUTICASONE/VILANTEROL 200-25 MCG/INH INHALER [14] IH SCH (09:00)
[2019-03-28] MEDS: CARVEDILOL 6.25 MG TABLET PO SCH ×2 (09:00→20:56)
[2019-03-28] MEDS: BENZONATATE 100 MG CAPSULE PO SCH ×3 (09:00→20:57)
[2019-03-28] MEDS: DOCUSATE SODIUM 100 MG CAPSULE PO SCH ×2 (09:00→20:56)
[2019-03-28] MEDS: ASPIRIN 81 MG EC TABLET PO SCH (09:00)
[2019-03-28 09:05] LABS: INR 1.7 (0.9-1.1)
[2019-03-28 09:18] LABS: LACTIC ACID 5.8 mmol/L (0.4-2.0)
[2019-03-28 09:24] LABS: PHOSPHORUS 7.1 mg/dL (2.5-4.9)
[2019-03-28] MEDS ORDERED: POTASSIUM CHLORIDE 20 MEQ in NXSTAGE RFP-402 K0/CA3 5,000 ML IRRIG PRN (09:30)
[2019-03-28] MEDS ORDERED: INFLUENZA VIRUS VACCINE QVS 2019-20 (3YR+)/PF 60 MCG/0.5 ML SYRINGE IM ONE (09:45)
[2019-03-28] MEDS ORDERED: ROCURONIUM BROMIDE 10 MG/ML 5 ML VIAL IVP ONE (09:52)
[2019-03-28] MEDS ORDERED: ETOMIDATE 2 MG/ML 10 ML VIAL IVP ONE (09:52)
[2019-03-28] MEDS ORDERED: PHENYLEPHRINE HCL 800 MG in DEXTROSE 5%-WATER 170 ML IV PRN (10:30)
[2019-03-28] MEDS: CEFEPIME HCL 2 GM in DEXTROSE 5%-WATER 50 ML IV SCH (13:25)
[2019-03-28 13:47] LABS: CALCIUM, TOTAL 8.8 mg/dL (8.8-10.5); CREATININE 3.12 mg/dL (0.60-1.30); POTASSIUM 4.7 mmol/L (3.5-5.1)
[2019-03-28] MEDS ORDERED: VANCOMYCIN HCL 500 MG in DEXTROSE 5%-WATER 100 ML IV ONE (14:00)
[2019-03-28] MEDS ORDERED: SODIUM CHLORIDE 0.9% 250 ML IV ONE (15:53)
[2019-03-28 19:42] LABS: ALBUMIN 1.9 g/dL (3.4-5.0); CALCIUM, TOTAL 9.2 mg/dL (8.8-10.5); CREATININE 2.59 mg/dL (0.60-1.30); POTASSIUM 4.8 mmol/L (3.5-5.1); TOTAL PROTEIN, SERUM 4.6 g/dL (6.4-8.2)
[2019-03-28 19:46] LABS: BILIRUBIN,TOTAL 25.1 mg/dL (0.1-1.0)
[2019-03-28] MEDS ORDERED: CEFEPIME HCL 1 GM in DEXTROSE 5%-WATER 50 ML IV SCH (21:00)
[2019-03-29] VITALS (8 sets, daily range): BP systolic 94–144; BP diastolic 21–70
[2019-03-29] MEDS: MethylPREDNISolone SOD SUCC 125 MG/2 ML VIAL IVP SCH ×5 (00:26→23:21)
[2019-03-29] MEDS: IPRATROPIUM BROMIDE 0.5 MG/2.5 ML NEB SOLUTION NEB SCH ×4 (01:47→19:33)
[2019-03-29] MEDS: ALBUTEROL SULFATE 2.5 MG/0.5 ML NEB SOLUTION NEB SCH ×4 (01:48→19:33)
[2019-03-29] MEDS ORDERED: SODIUM CHLORIDE 0.9% 250 ML IV ONE ×2 (02:32→23:19)
[2019-03-29] MEDS ORDERED: SODIUM CHLORIDE 0.9% 500 ML IV ONE ×2 (02:33→23:19)
[2019-03-29 02:34] LABS: CALCIUM, TOTAL 8.5 mg/dL (8.8-10.5); CREATININE 2.47 mg/dL (0.60-1.30)
[2019-03-29 02:43] LABS: POTASSIUM 6.1 mmol/L (3.5-5.1)
[2019-03-29] MEDS ORDERED: VASOPRESSIN 40 UNITS in SODIUM CHLORIDE 0.9% 98 ML IV PRN (02:54)
[2019-03-29] MEDS ORDERED: SODIUM BICARBONATE [ADULT] 8.4% 50 MEQ/50 ML SYRINGE IVP ONE ×2 (03:00→07:00)
[2019-03-29] MEDS ORDERED: NOREPINEPHRINE BITARTRATE 16 MG in SODIUM CHLORIDE 0.9% 234 ML IV PRN (03:14)
[2019-03-29] MEDS: MetroNIDAZOLE 500 MG/NACL 100 ML IV SCH ×3 (03:30→18:07)
[2019-03-29] MEDS: CALCIUM CHLORIDE 2,000 MG in SODIUM CHLORIDE 0.9% 250 ML IV SCH ×3 (03:45→19:31)
[2019-03-29] MEDS: OCTREOTIDE ACETATE 500 MCG in SODIUM CHLORIDE 0.9% 97.5 ML IV SCH ×3 (03:45→21:38)
[2019-03-29] MEDS: POTASSIUM CHLORIDE 15 MEQ in NXSTAGE RFP-402 K0/CA3 5,000 ML IRRIG PRN ×2 (03:45→04:01)
[2019-03-29] MEDS: PANTOPRAZOLE SODIUM 80 MG in SODIUM CHLORIDE 0.9% 100 ML IV SCH ×3 (03:48→19:32)
[2019-03-29] MEDS: CEFEPIME HCL 1 GM in SODIUM CHLORIDE 0.9% 50 ML IV SCH ×3 (04:38→21:54)
[2019-03-29 06:08] LABS: HEMATOCRIT 38.1 % (36-46); HEMOGLOBIN 12.5 g/dL (12.0-16.0); MEAN CORPUSCULAR HEMOGLOBIN 33.2 pg (26.0-34.0); MEAN CORPUSCULAR HGB CONC 32.7 G/dL (31.0-37.0); MEAN CORPUSCULAR VOLUME 101 fL (80-100); PLATELET COUNT (AUTO) 25 K/uL (150-450); RED BLOOD CELL COUNT(AUTO) 3.75 MIL/uL (4.00-5.20); RED CELL DISTRIBUTION WIDTH 15.8 % (11.5-14.5)
[2019-03-29 06:20] LABS: CREATININE 2.53 mg/dL (0.60-1.30); MAGNESIUM 1.8 mg/dL (1.80-2.40); PHOSPHORUS 6.8 mg/dL (2.5-4.9); VANCOMYCIN,RANDOM 17.3 mcg/mL (25.0-50.0)
[2019-03-29 06:38] LABS: POTASSIUM 6.7 mmol/L (3.5-5.1)
[2019-03-29] MEDS ORDERED: DEXTROSE 50%-WATER 25 GM/50 ML SYRINGE IVP ONE ×2 (06:44→07:00)
[2019-03-29] MEDS ORDERED: POTASSIUM CHLORIDE 10 MEQ in NXSTAGE RFP-402 K0/CA3 5,000 ML IRRIG PRN (06:49)
[2019-03-29] MEDS: SODIUM BICARBONATE 150 MEQ in DEXTROSE 5%-0.45% SODIUM CHL 1,000 ML IV SCH ×2 (07:25→14:51)
[2019-03-29 07:28] LABS: BAND NEUTROPHILS % (MANUAL) 16 % (0-5); CORRECTED WHITE BLOOD COUNT 12.4 K/uL (4.5-11.0); LYMPHOCYTES % (MANUAL) 4 % (22-44); METAMYELOCYTES % 1 % (0-0); MONOCYTES % (MANUAL) 11 % (2-9); MYELOCYTES % 1 % (0-0); SEGMENTED NEUTROPHILS % 67 % (40-70)
[2019-03-29 07:30] LABS: PLATELET MORPHOLOGY COMMENT LARGE PLTS PRESENT
[2019-03-29 08:22] LABS: ABG A-A DIFF O2 235.4 mmHg (10-20.0); ABG BASE EXCESS -13.7 mmol/L (-2.0-3.0); ABG CARBOXYHEMOGLOBIN 2.1 % (0.0-1.5); ABG OXYGEN CONTENT 15.2 mL/dL (15.0-23.0); ABG OXYGEN SATURATION 91.2 % (95.0-98.0); ABG OXYHEMOGLOBIN 89.3 % (94.0-100.0); ABG PCO2 23 mmHg (35-45); ABG PH 7.342 (7.35-7.450); ABG TOTAL HEMOGLOBIN 12.1 G/dL (12.0-18.0); SOURCE, BLOOD GAS ARTERIAL; TEMPERATURE, FAHRENHEIT, BG 95.7 FAHREN (96.0-98.6)
[2019-03-29 08:24] LABS: O2 DEVICE,BLOOD GAS VENTILATOR (ROOM AIR); PEEP,BG 5 cm H2O; SITE, BLOOD GAS ARTERIAL LINE; VT, ABG 450 ml
[2019-03-29] MEDS: BENZONATATE 100 MG CAPSULE PO SCH ×3 (09:00→21:00)
[2019-03-29] MEDS ORDERED: VANCOMYCIN HCL 750 MG in SODIUM CHLORIDE 0.9% 250 ML IV ONE (09:00)
[2019-03-29] MEDS: GuaiFENesin SR 600 MG ER TABLET PO SCH ×2 (09:00→21:00)
[2019-03-29] MEDS: DOCUSATE SODIUM 100 MG CAPSULE PO SCH ×2 (09:00→21:00)
[2019-03-29] MEDS: ASPIRIN 81 MG EC TABLET PO SCH (09:00)
[2019-03-29] MEDS: FLUTICASONE/VILANTEROL 200-25 MCG/INH INHALER [14] IH SCH (09:00)
[2019-03-29] MEDS: CARVEDILOL 6.25 MG TABLET PO SCH ×2 (09:00→21:00)
[2019-03-29] MEDS: PROPOFOL 1000 MG/ISO-OSM 100 ML IV PRN ×2 (10:02→18:07)
[2019-03-29 10:29] LABS: ANION GAP 20 mmol/L (8-16); CALCIUM, TOTAL 8.5 mg/dL (8.8-10.5); CARBON DIOXIDE 14 mmol/L (22-29); CHLORIDE 101 mmol/L (98-107); CREATININE 2.64 mg/dL (0.60-1.30); GLOMERULAR FILTR. RATE CALC 18 mL/min (>60); GLUCOSE,RANDOM 95 mg/dL (70-110); SODIUM SERUM 135 mmol/L (136-145); UREA NITROGEN, BLOOD 53 mg/dL (7-18)
[2019-03-29 10:32] LABS: POTASSIUM 6.8 mmol/L (3.5-5.1)
[2019-03-29 10:44] LABS: LACTIC ACID 13.3 mmol/L (0.4-2.0)
[2019-03-29] MEDS ORDERED: NXSTAGE RFP-402 K0/CA3 5,000 ML IRRIG PRN (10:54)
[2019-03-29 16:37] LABS: CALCIUM, TOTAL 8.1 mg/dL (8.8-10.5); CREATININE 2.56 mg/dL (0.60-1.30)
[2019-03-29 16:39] LABS: POTASSIUM 6.6 mmol/L (3.5-5.1)
[2019-03-29] MEDS: [UNRECOGNIZED DRUG - OTHER] IRRIG PRN ×3 (19:32→23:37)
[2019-03-29] MEDS: NXSTAGE RFP K0 IRRIG PRN ×3 (19:32→23:37)
[2019-03-29] MEDS: SODIUM BICARBONATE IRRIG PRN ×3 (19:32→23:37)
[2019-03-29 20:45] LABS: CALCIUM, TOTAL 8.5 mg/dL (8.8-10.5); CREATININE 2.59 mg/dL (0.60-1.30)
[2019-03-29 21:03] LABS: POTASSIUM 6.7 mmol/L (3.5-5.1)
[2019-03-29] MEDS: DEXTROSE 50%-WATER 25 GM/50 ML SYRINGE IVP PRN (21:37)
[2019-03-29] MEDS: [UNRECOGNIZED DRUG - OTHER] IV SCH ×2 (22:35→23:37)
[2019-03-29] MEDS: MAGNESIUM SULFATE IV SCH ×2 (22:35→23:37)
[2019-03-29] MEDS: DEXTROSE 50% IV SCH ×2 (22:35→23:37)
[2019-03-29] MEDS: SODIUM BICARBONATE IV SCH ×2 (22:35→23:37)
[2019-03-29] MEDS: WATER IV SCH ×2 (22:35→23:37)
[2019-03-30] VITALS: BP 109/35
[2019-03-30] MEDS: IPRATROPIUM BROMIDE 0.5 MG/2.5 ML NEB SOLUTION NEB SCH (01:43)
[2019-03-30] MEDS: ALBUTEROL SULFATE 2.5 MG/0.5 ML NEB SOLUTION NEB SCH (01:43)
[2019-03-30] MEDS: PROPOFOL 1000 MG/ISO-OSM 100 ML IV PRN (01:46)
[2019-03-30] MEDS: CALCIUM CHLORIDE 2,000 MG in SODIUM CHLORIDE 0.9% 250 ML IV SCH (01:56)
[2019-03-30] MEDS ORDERED: NALOXONE HCL 1 MG/ML 2 ML SYG ONE (02:00)
[2019-03-30] MEDS: MetroNIDAZOLE 500 MG/NACL 100 ML IV SCH (02:36)
[2019-03-30] MEDS: [UNRECOGNIZED DRUG - OTHER] IV SCH ×4 (02:37→06:13)
[2019-03-30] MEDS: SODIUM BICARBONATE IV SCH ×4 (02:37→06:13)
[2019-03-30] MEDS: WATER IV SCH ×4 (02:37→06:13)
[2019-03-30] MEDS: MAGNESIUM SULFATE IV SCH ×4 (02:37→06:13)
[2019-03-30] MEDS: DEXTROSE 50% IV SCH ×4 (02:37→06:13)
[2019-03-30 03:16] LABS: CALCIUM, TOTAL 9.6 mg/dL (8.8-10.5); CREATININE 1.86 mg/dL (0.60-1.30)
[2019-03-30 03:21] LABS: POTASSIUM 7.1 mmol/L (3.5-5.1)
[2019-03-30] MEDS: DEXTROSE 50%-WATER 25 GM/50 ML SYRINGE IVP PRN ×2 (03:25→03:49)
[2019-03-30] MEDS ORDERED: SODIUM BICARBONATE [ADULT] 8.4% 50 MEQ/50 ML SYRINGE IVP ONE ×2 (03:45)
[2019-03-30 04:00] VITALS: BP 134/38
[2019-03-30] MEDS: CEFEPIME HCL 1 GM in SODIUM CHLORIDE 0.9% 50 ML IV SCH (04:49)
[2019-03-30] MEDS ORDERED: PHENYLEPHRINE HCL IV PRN (05:00)
[2019-03-30] MEDS ORDERED: SODIUM CHLORIDE 0.9% IV PRN (05:00)
[2019-03-30] MEDS: NXSTAGE RFP K0 IRRIG PRN (05:26)
[2019-03-30] MEDS: SODIUM BICARBONATE IRRIG PRN (05:26)
[2019-03-30] MEDS: [UNRECOGNIZED DRUG - OTHER] IRRIG PRN (05:26)
[2019-03-30] MEDS: MethylPREDNISolone SOD SUCC 125 MG/2 ML VIAL IVP SCH (05:38)
[2019-03-30 06:12] LABS: HEMATOCRIT 38.1 % (36-46); MEAN CORPUSCULAR HEMOGLOBIN 32.7 pg (26.0-34.0); MEAN CORPUSCULAR HGB CONC 31.6 G/dL (31.0-37.0); MEAN CORPUSCULAR VOLUME 103 fL (80-100); PLATELET COUNT (AUTO) 36 K/uL (150-450); RED BLOOD CELL COUNT(AUTO) 3.69 MIL/uL (4.00-5.20); RED CELL DISTRIBUTION WIDTH 16.6 % (11.5-14.5)
[2019-03-30] MEDS ORDERED: HEPARIN SODIUM,PORCINE 5,000 UNITS/ML VIAL ONE (06:31)
[2019-03-30 06:36] LABS: CREATININE 1.52 mg/dL (0.60-1.30)
[2019-03-30 06:39] LABS: POTASSIUM 7.4 mmol/L (3.5-5.1)
[2019-03-30 06:42] LABS: INR 3.3 (0.9-1.1); PROTHROMBIN TIME 33.7 SEC (9.4-11.6)
[2019-03-30] MEDS ORDERED: SODIUM BICARBONATE 150 MEQ in DEXTROSE 5%-WATER 1,000 ML IV SCH (06:45)
[2019-03-30] MEDS ORDERED: HEPARIN SODIUM,PORCINE 1,000 UNITS/ML 10 ML VIAL IVP PRN ×2 (06:45)
[2019-03-30] MEDS ORDERED: HEPARIN SODIUM,PORCINE 1,000 UNITS/ML VIAL ONE (06:54)
[2019-03-30 07:33] LABS: GLUCOSE,POINT OF CARE 315 MG/DL (70-110)
[2019-03-30 08:07] LABS: BAND NEUTROPHILS % (MANUAL) 22 % (0-5); CORRECTED WHITE BLOOD COUNT 21.7 K/uL (4.5-11.0); LYMPHOCYTES % (MANUAL) 7 % (22-44); METAMYELOCYTES % 8 % (0-0); MONOCYTES % (MANUAL) 14 % (2-9); MYELOCYTES % 4 % (0-0); SEGMENTED NEUTROPHILS % 45 % (40-70)
[2019-03-30 08:42] LABS: VANCOMYCIN,RANDOM 9.6 mcg/mL (25.0-50.0)
[2019-03-30] MEDS ORDERED: VANCOMYCIN HCL 1,000 MG in SODIUM CHLORIDE 0.9% 250 ML IV ONE (09:00)
[2019-03-31 22:21] LABS: ADAMTS13 ACTIVITY 41.6 % (>66.8)
== END 2019-03-30 07:10 | disposition expired | DRG 871 ==
LOC: EMS 11:28 → ICU 17:13
PROVIDERS: ADMIT Internal Medicine; ATTEND Internal Medicine
PROC: 5A1945Z Respiratory Ventilation, 24-96 Consecutive Hours (ICD-10-PCS; principal; 2019-03-26)
PROC: 0BH17EZ Insertion of Endotracheal Airway into Trachea, Via Natural or Artificial Opening (ICD-10-PCS; 2019-03-26)
PROC: 04HK33Z Insertion of Infusion Device into Right Femoral Artery, Percutaneous Approach (ICD-10-PCS; 2019-03-27)
PROC: 30233L1 Transfusion of Nonautologous Fresh Plasma into Peripheral Vein, Percutaneous Approach (ICD-10-PCS; 2019-03-27)
DX: A41.9 Sepsis, unspecified organism (principal); R65.21 Severe sepsis with septic shock; J96.00 Acute respiratory failure, unspecified whether with hypoxia or hypercapnia; I50.21 Acute systolic (congestive) heart failure; J18.9 Pneumonia, unspecified organism; K72.00 Acute and subacute hepatic failure without coma; D65 Disseminated intravascular coagulation [defibrination syndrome]; N17.9 Acute kidney failure, unspecified; I42.8 Other cardiomyopathies; E87.2 Acidosis; J44.1 Chronic obstructive pulmonary disease with (acute) exacerbation; J45.901 Unspecified asthma with (acute) exacerbation; K55.9 Vascular disorder of intestine, unspecified; J44.0 Chronic obstructive pulmonary disease with (acute) lower respiratory infection; F15.10 Other stimulant abuse, uncomplicated; I11.0 Hypertensive heart disease with heart failure; F41.9 Anxiety disorder, unspecified; F32.9 Major depressive disorder, single episode, unspecified; E87.5 Hyperkalemia; F17.200 Nicotine dependence, unspecified, uncomplicated; Z91.19 Patient's noncompliance with other medical treatment and regimen
CPT/HCPCS: 36600; 70450; 71250; 72192; 74150; 76700; 80074; 82805; 83516; 83605; 83615; 83735; 84100; 85014; 85018; 85384; 85397; 86038; 86160; 86225; 86235; 86256; 86706; 86707; 86708; 86803; 86900; 86901; 86927; 87040; 87081; 87086; 87340; 87350; 87804; 92950; 93005; 93306; 94002; 94003; 94060; 94640; 96365; 96366; 99291; 99292; C9113; G0378; G0480; J0171; J0456; J0610; J0692; J1170; J1265; J1644; J2270; J2310; J2354; J2370; J2405; J2704; J2930; J3370; J3430; J3475; J3480; J3490; J7030; J7040; J7050; J7060; P9017